=== PATIENT | male | born 1970 | race Caucasian/White ===

== ENCOUNTER 2016-12-01 07:34 | Emergency (ER) | payer OTHER ==
[2016-12-01 07:52] VITALS: BP 137/84
--- NOTE | 2016-12-01 09:05 | UC ---
Jarod Guillen Alok, scribed for Yara Love MD on 12/01/16 at 0859 . FLU HPI - HPI Summary HPI Summary: 46 y/o male with multiple sclerosis who presents to the with influenza-like symptoms of sinus congestion, productive cough, mild joint soreness, chills, burning sore throat sensation, and fatigue since 2 days ago in the evening. Pt reports that multiple people in his work place have been diagnosed with influenza - states he works in tight environment with them. Pt has been taking Mucinex for the last 2 days. Pt denies SOB or rashes. No documented fevers, but states feels cold. Pt has taken his influenza vaccine this year. Pt denies any regular medications outside of MS medications, but is on an immunosuppressive agent. . Pt adds he has been doing pipe work in his kitchen with chemicals but has been wearing a mask with not visible mold. - History of Current Complaint Chief Complaint: UCRespiratory Stated Complaint: COUGH CHILLS CONGESTION Time Seen by Provider: 12/01/16 08:46 Hx Obtained From: Patient Onset/Duration: Gradual Onset, Lasting Days, Still Present Severity Currently: Moderate Severity Initially: Moderate Associated Signs & Symptoms: Positive: Myalgia, Cough, Sore Throat, Nasal Congestion. Negative: Fever Related Hx: Possible Flu/Infectious Exposure - Allergy/Home Medications Allergies/Adverse Reactions: Allergies Allergy/AdvReac Type Severity Reaction Status Date / Time No Known Allergies Allergy Verified 12/01/16 07:45 Home Medications: Home Medications Pseudoephedrine-Guaifenesin [Mucinex D 60-600 mg] 1 tab PO BID PRN 12/01/16 [ History Confirmed 12/01/16] PMH/Surg Hx/FS Hx/Imm Hx Previously Healthy: Yes Endocrine History Of: Denies: Diabetes, Thyroid Disease Cardiovascular History Of: Denies: Cardiac Disorders, Hypertension, Pacemaker/ICD Respiratory History Of: Denies: COPD, Asthma GI/ History Of: Denies: Ulcer, Renal Disease - Surgical History Surgical History: None - Family History Known Family History: Positive: Cardiac Disease, Other - LEUKEMIA - Social History Alcohol Use: Rare Substance Use Type: Marijuana Smoking Status (MU): Former Smoker - Immunization History Most Recent Influenza Vaccination: fall 2015 Review of Systems Constitutional: Chills, Fatigue Skin: Negative Eyes: Negative ENT: Sore Throat Respiratory: Cough Cardiovascular: Chest Pain Gastrointestinal: Negative Genitourinary: Negative Motor: Negative Neurovascular: Negative Musculoskeletal: Other: - Joint pain Neurological: Negative Psychological: Negative All Other Systems Reviewed And Are Negative: Yes Physical Exam Triage Information Reviewed: Yes Appearance: Well-Appearing, No Pain Distress, Well-Nourished, Other: - pleasant , tired appearing Vital Signs: Initial Vital Signs Temp 99.5 F 12/01/16 07:47 Pulse 102 12/01/16 07:47 Resp 16 12/01/16 07:47 BP 137/84 12/01/16 07:47 Pulse Ox 97 12/01/16 07:47 Eye Exam: Normal ENT Exam: Normal ENT: Positive: Nasal drainage, TMs normal. Negative: Pharynx normal - + PND no erythema, exudate uvula midline Dental Exam: Normal Neck exam: Normal Neck: Positive: Supple, Nontender, No Lymphadenopathy Respiratory Exam: Normal Respiratory: Positive: Lungs clear, Normal breath sounds, No respiratory distress Cardiovascular Exam: Normal Cardiovascular: Positive: RRR, No Murmur, Pulses Normal Abdominal Exam: Normal Abdomen Description: Positive: Nontender, No Organomegaly, Soft Bowel Sounds: Positive: Present Musculoskeletal: Positive: Strength Intact Neurological Exam: Normal Neurological: Positive: Alert Psychological Exam: Normal Skin Exam: Normal Flu Course/Dx - Course Course Of Treatment: Pt with a history of MS on immunosuppressive agents presents with cough, congestion, URI symptoms, and body aches after exposure to influenza in the work place. d/w pt Tamiflu - pt immunocompromised - Will start Tamiflu given exposures and ssx. d/w pt hydration. motrin/apap. rest. return prn - Differential Dx/Diagnosis Provider Diagnoses: influenza Discharge - Discharge Plan Condition: Stable Disposition: HOME Prescriptions: Oseltamivir CAP* [Tamiflu CAP*] 75 mg PO BID #10 cap Patient Education Materials: Influenza (ED) Referrals: Darryn Aguirre MD [Primary Care Provider] - Additional Instructions: - Stay well hydrated. Drink plenty of non-alcoholic, non-caffinated beverages - Take tamiflu medication as prescribed until gone - Okay to alternate ibuprofen (Advil, Motrin) and tylenol every 3 hours for pain or fever. Take with food - These infections are spread by oral secretion. Once you start to feel better, change your toothbrush and your bed linens. clean items that may have your secretions such as phone, computer mouse, TV remote, ipad, etc - Call your doctor or return with questions or concerns The documentation as recorded by the Jarod garcia Alok accurately reflects the service I personally performed and the decisions made by me, Yara Love MD.
== END 2016-12-01 09:12 | disposition home or self-care (01) ==
LOC: UCEAST 07:34
DX: J11.1 Influenza due to unidentified influenza virus with other respiratory manifestations (principal); F12.90 Cannabis use, unspecified, uncomplicated; Z87.891 Personal history of nicotine dependence
CPT/HCPCS: 99212; G0463

== ENCOUNTER 2019-06-20 05:27 | Emergency (ER) | payer OTHER ==
--- NOTE | 2019-06-20 06:46 | ED ---
Palpitations / Dysrhythmia - HPI Summary HPI Summary: This patient is a 48-year-old male who presents to the ED with symptoms of anxiety over the past 2 weeks. He does have a history of anxiety and takes a 1/4 mg Xanax as needed. He states over the past 2 weeks to month, he has been having more stress at work, endured a difficult breakup and has been feeling palpitations more frequently. He states his heart races intermittently, not worse with exertion. Tends to do yoga daily, but has avoided d/t elevated HR. He also states he quit smoking last year and has been using the Juul vape intermittently. He does admit to using Viagra once 2 weeks ago which worsened his increased heart rate. He states the heart rate will be sporadically, not worse or better at a specific time of day and not alleviated with medications. He does state he takes his 1/4 mg Xanax when feeling his heart rate elevate but is unsure if this improves his symptoms. He continues to be active, eating and drinking okay, denies any abdominal pain, nausea, vomiting, diarrhea, constipation. He denies any depression, denies suicidal ideation or homicidal ideation. Denies CP, SOB. Does endorse right sided hip/flank pain but states he travels for his job over 1 hour + daily and believes this to be sciatica. Denies urinary symptoms. Denies any diaphoresis, arm or jaw pain. Denies any fevers, sweats, chills or recent illness. PMHx of MS and anxiety Medications include: teriflunomide and gabapentin - History of Current Complaint Chief Complaint: EDGeneral Time Seen by Provider: 06/20/19 06:10 Hx Obtained From: Patient Onset/Duration: Gradual Onset Timing: Constant Severity Initially: Moderate Severity Currently: Moderate Character: Fast Aggravating: Nothing Alleviating: Nothing Associated Signs & Symptoms: Negative - Risk Factors Cardiac: Negative Pulmonary Embolism: Negative Atrial Fibrillation: Negative - Allergy/Home Medications Allergies/Adverse Reactions: Allergies Allergy/AdvReac Type Severity Reaction Status Date / Time No Known Allergies Allergy Verified 12/01/16 07:45 PMH/Surg Hx/FS Hx/Imm Hx Previously Healthy: Yes Endocrine/Hematology History: Denies: Hx Diabetes, Hx Thyroid Disease Cardiovascular History: Denies: Hx Hypertension, Hx Pacemaker/ICD Respiratory History: Denies: Hx Asthma, Hx Chronic Obstructive Pulmonary Disease (COPD) GI History: Denies: Hx Ulcer History: Denies: Hx Dialysis, Hx Renal Disease Sensory History: Denies: Hx Hearing Aid Psychiatric History: Denies: Hx Panic Disorder - Immunization History Hx Pertussis Vaccination: No Immunizations Up to Date: Yes Infectious Disease History: No Infectious Disease History: Denies: Hx Clostridium Difficile, Hx Hepatitis, Hx Human Immunodeficiency Virus (HIV), Hx of Known/Suspected MRSA, Hx Shingles, Hx Tuberculosis, Hx Known/ Suspected VRE, Hx Known/Suspected VRSA, History Other Infectious Disease, Traveled Outside the [place] in Last 30 Days - Family History Known Family History: Positive: Cardiac Disease, Other - LEUKEMIA - Social History Occupation: Employed Full-time Lives: Alone Alcohol Use: Rare Hx Substance Use: Yes Substance Use Type: Reports: Marijuana, Other Substance Use Comment - Amount & Last Used: CBD, vape Hx Tobacco Use: Yes Smoking Status (MU): Former Smoker Review of Systems Constitutional: Negative Negative: Fever, Chills, Fatigue, Skin Diaphoresis Positive: Other - heart racing. Negative: Palpitations, Chest Pain Negative: Shortness Of Breath, Cough Genitourinary: Negative Positive: no symptoms reported, see HPI Negative: Arthralgia, Myalgia Skin: Negative Neurological: Negative Positive: Anxious All Other Systems Reviewed And Are Negative: Yes Physical Exam Triage Information Reviewed: Yes Vital Signs On Initial Exam: Initial Vitals Temp Pulse Resp BP Pulse Ox 97.8 F 86 18 152/101 97 06/20/19 05:28 06/20/19 05:28 06/20/19 05:28 06/20/19 05:28 06/20/19 05:28 Vital Signs Reviewed: Yes Appearance: Positive: Well-Appearing, Well-Nourished Skin: Positive: Warm, Skin Color Reflects Adequate Perfusion Head/Face: Positive: Normal Head/Face Inspection Eyes: Positive: EOMI, FRANCISCO, Conjunctiva Clear Neck: Positive: Supple, No Lymphadenopathy Respiratory/Lung Sounds: Positive: Clear to Auscultation, Breath Sounds Present Cardiovascular: Positive: RRR, Pulses are Symmetrical in both Upper and Lower Extremities. Negative: Leg Edema Left, Leg Edema Right Musculoskeletal: Positive: Normal, Strength/ROM Intact Neurological: Positive: Sensory/Motor Intact, Alert, Oriented to Person Place, Time, Speech Normal Psychiatric: Positive: Anxious AVPU Assessment: Alert Diagnostics - Vital Signs Vital Signs Temp Pulse Resp BP Pulse Ox 06/20/19 06:11 84 98 06/20/19 05:28 97.8 F 86 18 152/101 97 - Laboratory Result Diagrams: 06/20/19 06:41 06/20/19 06:41 Lab Statement: Any lab studies that have been ordered have been reviewed, and results considered in the medical decision making process. Course/Dx - Course Course Of Treatment: During his course of treatment, the patient's evaluated for anxiety symptoms. Discussed with patient at length his symptoms are most likely related to anxiety as he is going through a difficult breakup, having more stress this child in symptoms are temporarily relieved somewhat with his 1/ 4 mg Xanax intermittently. Patient denies any cardiac disease. History of MS, however this has been well-controlled with diet and exercise. He does take gabapentin 100 mg twice daily and teriflunomide. Denies excess caffeine use or alcohol use. Continues to sleep well. Labs obtained including a troponin which were unremarkable. Troponin 0.00. Chest x-ray obtained which shows no active cardiopulmonary disease. Patient is not tachycardic in the ED and EKG reveals normal sinus rhythm. He is kept on a cardiopulmonary monitor without changes. Pt is dx with anxiety. - Diagnoses Provider Diagnoses: Anxiety Discharge ED - Sign-Out/Discharge Documenting (check all that apply): Patient Departure Patient Received Moderate/Deep Sedation with Procedure: No - Discharge Plan Condition: Stable Disposition: HOME Referrals: Corby Mayo MD [Primary Care Provider] - Additional Instructions: Please continue to follow up with your primary care physician Resume all activities and medications as prescribed - Billing Disposition and Condition Condition: STABLE Disposition: Home
[2019-06-20 07:03] LABS: ABS Eosinophils 0.1 10^3/ul (0-0.6); ABS Lymphocytes 0.8 10^3/ul (1.0-4.8); ABS Monocytes 0.3 10^3/ul (0-0.8); ABS Neutrophils 2.1 10^3/ul (1.5-7.7); Eosinophil % 1.6 %; Hematocrit 43 % (42-52); Hemoglobin 14.7 g/dL (14.0-18.0); Lymphocyte % 24.5 %; Mean Corpuscular HGB Conc 34 g/dL (31-36); Mean Corpuscular Hemoglobin 31 pg (27-31); Mean Corpuscular Volume 91 fL (80-94); Mean Platelet Volume 7.8 fL (7.4-10.4); Nucleated Red Blood Cells % 0.1; Platelet Count 167 10^3/uL (150-450); Red Blood Count 4.67 10^6 /uL (4.18-5.48); Red Cell Distribution Width 14 % (10-15); White Blood Count 3.3 10^3/uL (3.5-10.8)
[2019-06-20 07:26] LABS: Albumin 4.4 g/dL (3.2-5.2); Albumin/Globulin Ratio 2.4 (1-3); BUN/Creatinine Ratio 18.5 (8-20); EGFR African American 105.8 (>60); EGFR Non-African American 87.4 (>60); Globulin 1.8 g/dL (2-4); Potassium 3.9 mmol/L (3.5-5.0); Total Bilirubin 0.8 mg/dL (0.2-1.0); Total Protein 6.2 g/dL (6.4-8.9)
[2019-06-20 07:38] LABS: TSH (Thyroid Stimulating Horm) 1.81 mcIU/mL (0.34-5.60)
[2019-06-20 07:51] VITALS: BP 138/101
== END 2019-06-20 07:50 | disposition home or self-care (01) ==
LOC: ED 05:27
DX: F41.9 Anxiety disorder, unspecified (principal); R00.2 Palpitations; Z87.891 Personal history of nicotine dependence
CPT/HCPCS: 36415; 71046; 80053; 83605; 83735; 84443; 84484; 85025; 93005; 99282

== ENCOUNTER 2019-10-09 16:13 | Emergency (ER) | payer OTHER ==
[2019-10-09 16:25] VITALS: BP 146/97
--- NOTE | 2019-10-09 17:45 | UC ---
Abdominal Pain Male HPI - HPI Summary HPI Summary: pt presents to for evaluation of a wound on the left side of his penis he describes as a "blood blister" Pt states wound occurred during masturbation No other complaints. No pain with erection or ejaculation. No abdominal pain No n/ v/d. No difficulty with urination or hematuriea since. No pain in scrotum or testicle. No blood thinners. Pt is immunocompromised related to MS. No open wounds Pt's medications as entered in EMR by planner internship reviewed this visit - History of Current Complaint Chief Complaint: UCGU Stated Complaint: PERSONAL Time Seen by Provider: 10/09/19 17:43 Pain Intensity: 3 - Allergies/Home Medications Allergies/Adverse Reactions: Allergies Allergy/AdvReac Type Severity Reaction Status Date / Time No Known Allergies Allergy Verified 10/09/19 16:25 PMH/Surg Hx/FS Hx/Imm Hx Previously Healthy: Yes - MS - Surgical History Surgical History: None - Family History Known Family History: Positive: Cardiac Disease, Other - LEUKEMIA, Non- Contributory - Social History Alcohol Use: Rare Substance Use Type: Marijuana, Other Substance Use Comment - Amount & Last Used: Medical Smoking Status (MU): Former Smoker Have You Smoked in the Last Year: No - Immunization History Most Recent Influenza Vaccination: fall 2015 Review of Systems All Other Systems Reviewed And Are Negative: Yes Constitutional: Positive: Negative Skin: Positive: Bruising Physical Exam - Summary Physical Exam Summary: Vital Signs Reviewed: Yes A+Ox3, no distress Eyes: Conjunctiva Clear, FRANCISCO. EOM intact and full ENT: Hearing grossly normal TM x 2 clear, mmoist, uvula midline, no exudate, no erythema Neck: Positive: Supple Respiratory: Positive: No respiratory distress, No accessory muscle use + CTA throughout no w/r Cardiovascular: RRR nl s1, s2 no m/r CBT <2 sec abd soft + BS nt/nd no guarding, no distension, no CVA :; RN Patricia at bedside - pt with kirsten size, circular area of ecchymosis c/ w small vein bleed. No edema, no blister, no pain, no fluctuance. No inguinal pain, no hernia, no testicular pain, no open wounds. Musculoskeletal Exam: ABDI x 4 without difficulty Strength Intact, ROM Intact Neurological: Positive: Alert, + sensation throughout Psychological: Positive: Normal Response To command center officer Skin: Positive: no rash, Triage Information Reviewed: Yes Vital Signs: Initial Vital Signs Temp 98.4 F 10/09/19 16:22 Pulse 91 10/09/19 16:22 Resp 12 10/09/19 16:22 BP 146/97 10/09/19 16:22 Pulse Ox 97 10/09/19 16:22 Abd Pain Male Course/Dx - Course Course Of Treatment: Pt presents for evaluation of a wound on his penis which occurred during mastrubation at 3pm today. no other complaints on chaparoned exam, pt with kirsten size are of ecchymosis. not raised, open, pain ful. No edema d/w pt - c/w small blood vessel injury pt urine without gross hematuria reviewed with pt to monitor wound - return for pain, swellling, difficulty urinating, or any other concerns pt states understanding and agreement with plan - aware may take time to resolve but should resolve in full 7-10 days slight elevated BP - related to visit -recommend recheck with pcp - Differential Dx/Clinical Impression Provider Diagnosis: Ecchymosis Discharge ED - Sign-Out/Discharge Documenting (check all that apply): Patient Departure All imaging exams completed and their final reports reviewed: No Studies - Discharge Plan Condition: Stable Disposition: HOME Patient Education Materials: Hematoma (ED) Referrals: Corby Mayo MD [Primary Care Provider] - Mayco Jade MD [Medical Doctor] - Additional Instructions: Okay to apply a cool pack (or ice wrapped in a towel) to the area, 2-3 times a day Okay to take Tylenol every 6 hours as needed for pain Monitor your wound - you may notice spreading of your bruising - this is normal and non concerning - if you develop reddness, red streaking, fever, increased pain, blood in your urine, pain in your testicles or any other concerns it is recommended you go to the emergency department for further evaluation. You have been given the contact information for the urologist - okay to contact his office to schedule a follow-up appointment or with questions/ concerns - Billing Disposition and Condition Condition: STABLE Disposition: Home
== END 2019-10-09 18:21 | disposition home or self-care (01) ==
LOC: UCEAST 16:13
DX: S30.21XA Contusion of penis, initial encounter (principal); X58.XXXA Exposure to other specified factors, initial encounter; Y93.89 Activity, other specified; Y92.9 Unspecified place or not applicable; R03.0 Elevated blood-pressure reading, without diagnosis of hypertension; Z87.891 Personal history of nicotine dependence
CPT/HCPCS: 99211; G0463